=== PATIENT | female | born 1950 | race Two or more races ===

== ENCOUNTER → 2017-07-27 | Emergency (ER) | payer OTHER ==
[~2017-07-27] VITALS: Ht 152.4 cm; Wt 74.4 kg
[~2017-07-27] MED LIST: ANASPAZ0.125 MG PO; AVAPRO75 MG; DEXILANT30 MG; DEXILANT60 MG; DIOVAN HCT 1601 EACH; ESTRADIOL0.5 MG PO; FOLGARD TABLET1 EACH; LIBRAX PO; LIPITOR20 MG; NORVASC2.5 M1 PO; PEPCID40 MG; PREVACID30 M1; REFRESH15 ML; SYNTHROID50 MCG PO; TOPROL XL25 M1; TRAM1TAB98 PO; ULTRAM50 MG; VISINE ALLERGY15 ML OP; VITAMIN A8000 UNIT; XANAX XR0.5 MG; ZANTAC300 MG; ZYRTEC10 M3; [UNRECOGNIZED DRUG - OTHER]
== END | disposition home or self-care (01) ==
LOC: ER 10:51
DX: J09.X2 Influenza due to identified novel influenza A virus with other respiratory manifestations (principal); J06.9 Acute upper respiratory infection, unspecified

== ENCOUNTER 2017-12-13 06:10 | Emergency (ER) | payer OTHER ==
[~2017-12-13] VITALS: Ht 152.4 cm; Wt 75.3 kg
[2017-12-13] MEDS ORDERED: MEDROLPACK PO (07:26)
[2017-12-13] MEDS ORDERED: TRIAMCINOLONE A15 GM TOP (07:26)
== END 2017-12-13 07:44 | disposition home or self-care (01) ==
LOC: ER 06:10
DX: L20.89 Other atopic dermatitis (principal)

== ENCOUNTER 2018-12-31 08:07 | Emergency (ER) | payer OTHER ==
[~2018-12-31] VITALS: Ht 165.1 cm; Wt 70.3 kg
[~2018-12-31 08:07] MED LIST changes: +MEDROLPACK PO; +TRIAMCINOLONE A15 GM TOP
[2018-12-31] MEDS ORDERED: BUPIVACAIN IJ (08:11)
== END 2018-12-31 10:55 | disposition home or self-care (01) ==
LOC: ER 08:07
DX: K52.89 Other specified noninfective gastroenteritis and colitis (principal)

== ENCOUNTER 2019-01-17 14:44 | Emergency (ER) | payer OTHER ==
[~2019-01-17] VITALS: Ht 152.4 cm; Wt 74.4 kg
[~2019-01-17 14:44] MED LIST changes: +BUPIVACAIN IJ
[2019-01-17] MEDS ORDERED: URIN D.S. TABL1 EACH PO (17:29)
[2019-01-17] MEDS ORDERED: PREDNISONE20 MG PO (17:37)
[2019-01-17] MEDS ORDERED: EPIPEN 2-P0.3 MG/0.3 IM (17:37)
== END 2019-01-17 18:30 | disposition home or self-care (01) ==
LOC: ER 14:44
DX: N39.0 Urinary tract infection, site not specified (principal); B96.89 Other specified bacterial agents as the cause of diseases classified elsewhere

== ENCOUNTER → 2019-01-20 | Emergency (ER) | payer OTHER ==
[~2019-01-20] VITALS: Ht 152.4 cm; Wt 74.4 kg
[~2019-01-20] MED LIST changes: +EPIPEN 2-P0.3 MG/0.3 IM; +PREDNISONE20 MG PO; +URIN D.S. TABL1 EACH PO
== END | disposition left against medical advice (07) ==
LOC: ER 10:27
DX: Z53.20 Procedure and treatment not carried out because of patient's decision for unspecified reasons (principal)

== ENCOUNTER 2019-04-01 03:33 | Emergency (ER) | payer OTHER ==
[~2019-04-01] VITALS: Ht 152.4 cm; Wt 74.4 kg
[2019-04-01] MEDS ORDERED: LOPERAMIDE2 MG PO (08:36)
[2019-04-01] MEDS ORDERED: CHLORDIAZEPOXI1 EACH PO (08:36)
== END 2019-04-01 08:51 | disposition home or self-care (01) ==
LOC: ER 03:33
DX: K52.89 Other specified noninfective gastroenteritis and colitis (principal); R53.1 Weakness; F41.8 Other specified anxiety disorders

== ENCOUNTER 2021-10-30 15:38 | Emergency (ER) | payer OTHER ==
[~2021-10-30] VITALS: Ht 152.4 cm; Wt 81.6 kg
[~2021-10-30 15:38] MED LIST changes: +CHLORDIAZEPOXI1 EACH PO; +LOPERAMIDE2 MG PO
[2021-10-30] MEDS ORDERED: TOPROL XL100 M1 (16:03)
[2021-10-30] MEDS ORDERED: DEXILANT60 MG (16:04)
[2021-10-30] MEDS ORDERED: PEPCID AC20 MG (16:04)
[2021-10-30] MEDS ORDERED: ZYRTEC10 MG PO (16:05)
[2021-10-30] MEDS ORDERED: LEVOTHYROXINE25 MCG PO (16:05)
[2021-10-30] MEDS ORDERED: PEPCID AC10 MG (16:05)
[2021-10-30] MEDS ORDERED: CLIMARA1 EAC1 (16:06)
[2021-10-30] MEDS ORDERED: HYDRALAZINE HCL10 MG PO (16:06)
[2021-10-30] MEDS ORDERED: XANAX XR0.5 MG PO (16:06)
[2021-10-30] MEDS ORDERED: ATORVASTATIN CA10 MG PO (16:07)
[2021-10-30] MEDS ORDERED: TYLENOL ARTHRI650 MG (16:07)
== END 2021-10-30 18:20 | disposition home or self-care (01) ==
LOC: ER 15:38
DX: R10.13 Epigastric pain (principal); I16.9 Hypertensive crisis, unspecified; Z88.6 Allergy status to analgesic agent; Z88.2 Allergy status to sulfonamides; Z88.8 Allergy status to other drugs, medicaments and biological substances

== ENCOUNTER 2023-11-14 13:59 | Emergency (ER) | payer OTHER ==
[~2023-11-14] VITALS: Ht 152.4 cm; Wt 77.1 kg
[~2023-11-14 13:59] MED LIST changes: +ATORVASTATIN CA10 MG PO; +CLIMARA1 EAC1; +HYDRALAZINE HCL10 MG PO; +LEVOTHYROXINE25 MCG PO; +PEPCID AC10 MG; +PEPCID AC20 MG; +TOPROL XL100 M1; +TYLENOL ARTHRI650 MG; +XANAX XR0.5 MG PO; +ZYRTEC10 MG PO
[2023-11-14] MEDS ORDERED: FAMOTIDINE/PF 20 MG in 0.9 % SODIUM CHLORIDE 8 ML IV PUSH STA (15:25)
[2023-11-14] MEDS ORDERED: 0.9 % SODIUM CHLORIDE 1,000 ML IV SCH (15:30)
== END 2023-11-14 15:39 | disposition left against medical advice (07) ==
LOC: ER 13:59
DX: R19.7 Diarrhea, unspecified (principal); R11.0 Nausea; I10 Essential (primary) hypertension; E11.9 Type 2 diabetes mellitus without complications; Z88.2 Allergy status to sulfonamides; Z88.6 Allergy status to analgesic agent
CPT/HCPCS: 96365; 99282; J3490; J7030

== ENCOUNTER 2024-04-11 15:24 | Emergency (ER) | payer OTHER ==
[~2024-04-11] VITALS: Ht 162.6 cm; Wt 95.3 kg
[~2024-04-11 15:24] MED LIST changes: +APRESOLINE 10MG10 MG PO; +LOPERAMIDE2 M1; +METOPROLOL SUCC50 MG PO; +VALSARTAN160 MG PO
[2024-04-11] MEDS ORDERED: RINGERS SOLUTION,LACTATED 1,000 ML IV STA (17:18)
[2024-04-11 17:47] LABS: HEMATOCRIT 38.7 % (36.0-45.00); HEMOGLOBIN 12.9 g/dL (12.0-15.00); MEAN CELL VOLUME 90.8 fL (80.00-100.00); MEAN CORPUSCULAR HEMOGLOBIN 30.2 pg (27.00-32.0); MEAN CORPUSCULAR HGB CONC 33.3 g/dl (32.0-36.0); PH,URINE 5.5 (5.0-8.0); PLATELET COUNT 237 K/uL (150-450); RED BLOOD COUNT 4.26 M/uL (4.00-6.00); RED CELL DISTRIBUTION WIDTH 14.3 % (11.5-14.5); URINE APPEARANCE Clear; URINE BILIRRUBIN Negative (NEGATIVE); URINE BLOOD Negative; URINE COLOR Yellow; URINE GLUCOSE Negative (NEGATIVE); URINE KETONE Negative (NEGATIVE); URINE LEUKOCYTE Negative; URINE NITRATE Negative; URINE PROTEIN Negative (NEGATIVE); URINE UROBILINOGEN 0.2 E.U./dl
[2024-04-11 17:48] LABS: URINE BACTERIA 507.7 uL (0.0-1933); URINE EPITHELIAL CELLS 31.5 uL (0.0-38.8)
[2024-04-11 18:09] LABS: ALBUMIN 3.6 gm/dL (3.4-5.0); BILIRUBIN TOTAL 0.71 mg/dL (0.3-1.2); CALCIUM 9.3 mg/dL (8.5-10.1); CREATININE SERUM 0.71 mg/dL (0.55-1.02); GFR 80.69; GLOBULINA 3.6 G/DL (2.4-3.5); POTASSIUM 3.84 mEq/L (3.5-5.1); TOTAL PROTEIN 7.2 gm/dL (6.4-8.2)
== END 2024-04-11 20:54 | disposition home or self-care (01) ==
LOC: ER 15:24
DX: K59.1 Functional diarrhea (principal); Z91.013 Allergy to seafood; Z91.018 Allergy to other foods; Z88.2 Allergy status to sulfonamides; Z88.6 Allergy status to analgesic agent

== ENCOUNTER 2024-08-07 00:47 | Emergency (ER) | payer OTHER ==
[~2024-08-07] VITALS: Ht 152.4 cm; Wt 54.4 kg
[2024-08-07 01:01] VITALS: O2SAT 97
[2024-08-07] MEDS ORDERED: cloNIDine HCL 0.3 MG TABLET PO STA (04:08)
[2024-08-07] MEDS ORDERED: CLONIDINE HCL 0.1 MG TABLET PO ONE (04:17)
[2024-08-07 06:17] LABS: HEMATOCRIT 43.2 % (36.0-45.00); HEMOGLOBIN 14.4 g/dL (12.0-15.00); MEAN CELL VOLUME 88.7 fL (80.00-100.00); MEAN CORPUSCULAR HEMOGLOBIN 29.7 pg (27.00-32.0); MEAN CORPUSCULAR HGB CONC 33.4 g/dl (32.0-36.0); PLATELET COUNT 283 K/uL (150-450); RED BLOOD COUNT 4.87 M/uL (4.00-6.00); RED CELL DISTRIBUTION WIDTH 15.2 % (11.5-14.5)
[2024-08-07 06:42] LABS: CALCIUM 9.1 mg/dL (8.5-10.1); CREATININE SERUM 0.7 mg/dL (0.55-1.02); GFR 82.02; POTASSIUM 4.3 mEq/L (3.5-5.1)
[2024-08-07 07:39] VITALS: BP 140/80
== END 2024-08-07 08:38 | disposition home or self-care (01) ==
LOC: ER 00:49
DX: I10 Essential (primary) hypertension (principal); Z88.2 Allergy status to sulfonamides; Z91.013 Allergy to seafood; Z88.6 Allergy status to analgesic agent; Z88.8 Allergy status to other drugs, medicaments and biological substances

== ENCOUNTER → 2025-02-17 | Emergency (ER) | payer OTHER ==
[~2025-02-17] VITALS: Ht 152.4 cm; Wt 60.3 kg
== END | disposition left against medical advice (07) ==
LOC: ER 10:22
DX: Z53.21 Procedure and treatment not carried out due to patient leaving prior to being seen by health care provider (principal)